=== PATIENT | male | born 1960 | race Hispanic/Latino ===

== ENCOUNTER → 2017-05-03 | Outpatient (CLI) | payer BC ==
[~2017-05-03] MED LIST: LOSARTAN POTAS100 MG PO
--- NOTE | 2017-05-03 18:39 | Diagnostic Imaging Report ---
PROCEDURE: Frontal and lateral views of the chest. COMPARISON: The 02/19/16 INDICATIONS: COUGH, CONGESTION FINDINGS: Lines/tubes: None. Lungs: The lungs are well inflated and clear. There is no evidence of pneumonia or pulmonary edema. Pleura: There is no pleural effusion or pneumothorax. Heart and mediastinum: The heart and the mediastinum are normal. Bones: No acute bony abnormality. IMPRESSION: 1. No acute cardiopulmonary disease. Dictated by: Ramos Kerns M.D. on 05/03/2017 at 18:47 Electronically approved by: Ramos Kerns M.D. on 05/03/2017 at 18:47
== END ==
LOC: RAD 17:54
PROVIDERS: ATTEND Family Medicine
DX: R05 Cough (principal); K21.9 Gastro-esophageal reflux disease without esophagitis
CPT/HCPCS: 71046

== ENCOUNTER → 2017-05-21 | Outpatient (CLI) | payer BC ==
--- NOTE | 2017-05-21 09:52 | Diagnostic Imaging Report ---
PROCEDURE:X-RAY UPPER GI SERIES WITH AIR CONTRAST COMPARISON:None. INDICATIONS:Gastroesophageal reflux. TECHNIQUE:Routine double contrast upper GI using effervescent air crystals, thin barium, and thick barium. Fluoroscopy time: 2.4 minutes. Cumulative air kerma: 43.22 mGy FINDINGS: The esophagus demonstrates normal caliber and mucosal contour. Normal peristalsis. Stomach demonstrates normal gastric fold thickness without conspicuous ulcer or polyp. Mild gastroesophageal reflux extending to the midesophagus. Normal duodenal sweep. CONCLUSION: Mild gastroesophageal reflux extending to the midesophagus. Dictated by: Robert Talley M.D. on 05/21/2017 at 9:52 Electronically approved by: Robert Talley M.D. on 05/21/2017 at 9:52
== END ==
LOC: DX 08:30
PROVIDERS: ATTEND Family Medicine
DX: R05 Cough (principal); K21.9 Gastro-esophageal reflux disease without esophagitis
CPT/HCPCS: 74246

== ENCOUNTER → 2020-12-30 | Outpatient (CLI) | payer OTHER | LOC: RAD 11:18 | PROVIDERS: ATTEND Family Medicine | DX: M54.5 Low back pain (principal) | CPT/HCPCS: 72100 ==

== ENCOUNTER → 2025-01-15 | Day surgery (SDC) | payer OTHER ==
[~2025-01-15] MED LIST changes: +ACETAMINOPHEN 1000 MG/100 ML 100 ML IV ONE; +ALFUZOSIN HCL10 MG PO; +ALLERGY MEDICAT25 MG PO; +AMLODIPINE BESYL5 MG PO; +DESLORATADINE5 MG PO; +DEXAMETHASONE SOD PHOS INJ 4 MG/ML SDV ONE; +EPHEDRINE SULFATE INJ 50 MG/ML VIAL ONE; +FENTANYL CITRATE/PF 100MCG/2 ML INJ ONE; +LACTATED RINGER'S 1,000 ML ONE; +LIDOCAINE HCL 2% LOCAL INJ 5 ML SDV VIAL INJ ONE; +MONTELUKAST SOD10 MG PO; +ONDANSETRON HCL INJ 2MG/ML 2ML 2 MG/ML VIAL ONE; +PROPOFOL IV EMULSION 10 MG/ML 20 ML VIAL ONE; +PROTONIX20 MG PO; +SERTRALINE HCL100 MG PO; +[UNRECOGNIZED DRUG - REMARK] PO
[2025-01-15 09:51] LABS: BASOPHILS % 0.8 % (0.0-1.0); EOSINOPHILS % 10.0 % (0.0-6.0); LYMPHOCYTES % 39.3 % (18.0-39.1); MONOCYTES % 11.1 % (4.4-11.3); NEUTROPHILS % 38.5 % (38.7-80.0); RED CELL DISTRIBUTION WIDTH 14.3 % (11.7-14.4)
[2025-01-15 10:21] LABS: EST GLOMERULAR FILTRATION RATE 77.0 ML/MIN (>=60)
[2025-01-15 13:34] VITALS: BP 124/81; PULSE 76; RESP 18; O2SAT 98
== END | disposition home or self-care (01) ==
LOC: OR 08:36
PROVIDERS: ATTEND Surgery
DX: L72.0 Epidermal cyst (principal); I10 Essential (primary) hypertension; F17.210 Nicotine dependence, cigarettes, uncomplicated; Z88.6 Allergy status to analgesic agent; Z79.899 Other long term (current) drug therapy; Z01.810 Encounter for preprocedural cardiovascular examination; Z01.812 Encounter for preprocedural laboratory examination
CPT/HCPCS: 21931; 36415; 71046; 80053; 85025; 88304; 93005; J0131; J1100; J2003; J2405; J2704; J3010; J7121